=== PATIENT | female | born 2005 | race Caucasian/White ===

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

== ENCOUNTER 2024-01-15 16:23 | Emergency (ER) | payer OTHER ==
[~2024-01-15] VITALS: Ht 175.3 cm; Wt 64.4 kg
[2024-01-15 16:23] VITALS: BP 113/73; TEMP 98.7; O2SAT 100
[~2024-01-15 16:23] MED LIST changes: +FLUO-290 PO; -FLUO10CA18 PO; +ONDA-282 PO; -ONDA4TAB6 PO
[2024-01-15] MEDS: methocarbamoL 500 MG TAB PO ONE (17:05)
[2024-01-15 17:06] LABS: BASO % 0.4 % (0.0-1.0); EOS % 0.5 % (0.0-3.0); HEMATOCRIT 38.7 % (36.0-47.0); HEMOGLOBIN 12.7 g/dl (12.0-15.5); LYMPH # 3.6 10^3/uL (1.5-5.0); LYMPH % 46.6 % (24.0-44.0); MEAN CORPUSCULAR HGB CONC 32.8 g/dl (32.0-36.5); MEAN CORPUSCULAR VOLUME 88.4 fl (80.0-96.0); MONO # 0.6 10^3/uL (0.0-0.8); MONO % 7.7 % (2.0-8.0); NEUTROPHILS # 3.4 10^3/uL (1.5-8.5); PLATELET COUNT, AUTOMATED 293 10^3/uL (150-450); RED BLOOD COUNT 4.38 10^6/uL (4.00-5.40); WHITE BLOOD COUNT 7.6 10^3/uL (4.0-10.0)
[2024-01-15] MEDS: ACETAMINOPHEN 500 MG TAB PO ONE (17:06)
[2024-01-15 17:23] LABS: INR 1.03; PARTIAL THROMBOPLASTIN TIME 31.5 SECONDS (24.8-34.2); PROTHROMBIN TIME 13.2 SECONDS (12.5-14.5)
[2024-01-15] MEDS ORDERED: TRAM50TA2 PO ×2 (18:40→18:57)
[2024-01-15] MEDS ORDERED: METH-1164 PO (18:40)
[2024-01-15] MEDS ORDERED: IBUP-1022 PO (18:40)
== END 2024-01-15 19:08 | disposition home or self-care (01) ==
LOC: M ED 16:23
DX: S22.060A Wedge compression fracture of T7-T8 vertebra, initial encounter for closed fracture (principal); S13.4XXA Sprain of ligaments of cervical spine, initial encounter; W10.8XXA Fall (on) (from) other stairs and steps, initial encounter; Y92.009 Unspecified place in unspecified non-institutional (private) residence as the place of occurrence of the external cause; Y93.9 Activity, unspecified; Y99.9 Unspecified external cause status; Z87.820 Personal history of traumatic brain injury

== ENCOUNTER 2024-06-02 12:08 | Emergency (ER) | payer OTHER ==
[~2024-06-02] VITALS: Ht 175.3 cm; Wt 59.7 kg
[~2024-06-02 12:08] MED LIST changes: +IBUP-1022 PO; +METH-1164 PO; +TRAM50TA2 PO
[2024-06-02 15:58] VITALS: BP 114/69; TEMP 98.8; O2SAT 100
[2024-06-02] MEDS ORDERED: BENZ200C70 PO (16:25)
[2024-06-02] MEDS ORDERED: VENTAER INH (16:25)
== END 2024-06-02 16:32 | disposition home or self-care (01) ==
LOC: M ED 12:08
DX: J20.9 Acute bronchitis, unspecified (principal); F17.200 Nicotine dependence, unspecified, uncomplicated

== ENCOUNTER 2024-06-23 16:47 | Emergency (ER) | payer OTHER ==
[~2024-06-23] VITALS: Ht 175.3 cm; Wt 54.5 kg
[~2024-06-23 16:47] MED LIST changes: +BENZ200C70 PO
[2024-06-23 18:00] VITALS: BP 134/77; TEMP 98; O2SAT 99
[2024-06-23] MEDS: IBUPROFEN 400MG TAB PO ONE (18:17)
[2024-06-23] MEDS: ACETAMINOPHEN 325 MG TAB PO ONE (18:17)
== END 2024-06-23 18:21 | disposition home or self-care (01) ==
LOC: M ED 16:47
DX: R07.89 Other chest pain (principal); G89.29 Other chronic pain; M54.9 Dorsalgia, unspecified; F41.9 Anxiety disorder, unspecified; F32.A Depression, unspecified; Z87.820 Personal history of traumatic brain injury; Z87.891 Personal history of nicotine dependence

== ENCOUNTER → 2024-07-12 | Outpatient (CLI) | payer OTHER ==
[~2024-07-12] MED LIST changes: +E-Z-GAS II EFFERVESCENT PACKET (SODIUM BICARB./CITRIC ACID/SIMETHICONE) As Ordered ONE; +E-Z-HD 98% w/w 340GM SUSP BTL As Ordered ONE; +E-Z-PAQUE 96% w/w SUSP 176GM BTL As Ordered ONE
== END ==
LOC: M RAD 09:54
PROVIDERS: ATTEND Physician Assistant
DX: R13.10 Dysphagia, unspecified (principal)